=== PATIENT | female | born 1945 ===

== ENCOUNTER → 2025-01-09 | Day surgery (SDC) | payer OTHER ==
[~2025-01-09] MED LIST: ATACAND HCT 321 EAC1 PO; CEFAZOLIN SODIUM 1,000 MG VIAL ONE; CHLORHEXIDINE GLUCONATE 120 ML BOTTLE TOP ONE; GENTAMICIN SULFATE 40 MG/ML VIAL ONE; LIDOCAINE HCL 1%/EPINEPHRINE 20ML VIAL IJ ONE; SYNTHROID75 MCG PO
== END | disposition home or self-care (01) ==
LOC: ADM 12-21 10:45 → CIR.AMB 12-26 07:00
PROVIDERS: ATTEND Obstetrics & Gynecology Gynecology
DX: N81.5 Vaginal enterocele (principal); N81.11 Cystocele, midline; N81.6 Rectocele